=== PATIENT | female | born 1990 | race American Indian/Alaskan Native ===

== ENCOUNTER 2017-01-08 23:06 | Outpatient (CLI) | payer OTHER ==
[2017-01-08] MEDS ORDERED: LACTATED RINGERS 500 ML IV ONE (23:35)
[2017-01-08 23:49] VITALS: BP 113/76
[2017-01-08 23:58] LABS: Bacteria,Urine 1+ /HPF (Negative); Bilirubin,Urine NEG (Negative); Blood,Urine NEG (Negative); Ketones,Urine NEG (Negative); Leukocyte Esterase,Urine NEG (Negative); Mucus,Urine FEW /HPF; Nitrite,Urine NEG (Negative); Protein,Urine <15 mg/dL mg/dL (Negative); Urobilinogen,Urine < 2.0 mg/dL (<2.0)
--- NOTE | 2017-01-09 01:21 | Ultrasound Report ---
FINAL REPORT EXAM: US OB \T\gt; = 14 WEEKS FETUS HISTORY: Contractions, pressure, unable to find FHR. TECHNIQUE: Directed transabdominal ultrasound examination of the gravid pelvis was performed. No prior studies are available for comparison. FINDINGS: The patient is uncertain of last menstrual period. There is a single live intrauterine gestation, with cephalic presentation. The placenta is located posteriorly, and homogenous. The cervix measures 3.2 cm in length, within normal limits. The BPD measures 6.9 cm, corresponding to 27 weeks, 4 days. The HC measures 25.2 cm, corresponding to 27 weeks, 2 days. The AC measures 22.6 cm, corresponding to 27 weeks, 0 days. The femur length measures 5.1 cm, corresponding to 27 weeks, 2 days. There is an average ultrasound age of 27 weeks, 2 days. The anatomic survey is grossly unremarkable. cardiac activity is identified with a heart rate of 148 beats per minute. The RICK measures 9.4 cm, within normal limits. There is no significant pelvic free fluid. IMPRESSION: Single live intrauterine gestation with cephalic presentation, with average ultrasound age of 27 weeks, 2 days.
== END 2017-01-09 00:57 | disposition home or self-care (01) ==
LOC: TRG 23:06
PROVIDERS: ATTEND Obstetrics & Gynecology
DX: O47.02 False labor before 37 completed weeks of gestation, second trimester (principal); Z3A.27 27 weeks gestation of pregnancy
CPT/HCPCS: 76805; 81001; J7120

== ENCOUNTER 2017-02-19 06:49 | Outpatient (CLI) | payer OTHER ==
[2017-02-19 07:20] VITALS: BP 130/71
== END 2017-02-19 09:25 | disposition home or self-care (01) ==
LOC: TRG 06:49
PROVIDERS: ATTEND Obstetrics & Gynecology
DX: O47.03 False labor before 37 completed weeks of gestation, third trimester (principal); Z3A.32 32 weeks gestation of pregnancy
CPT/HCPCS: 59025

== ENCOUNTER 2017-02-19 09:30 | Emergency (ER) | payer OTHER ==
[2017-02-19 10:22] LABS: Basophils % (Auto) 0.3 % (0.0-1.8); Eosinophils % (Auto) 3.6 % (0.0-4.3); Hematocrit 31.7 % (30.3-42.9); Hemoglobin 10.6 gm/dl (10.1-14.3); Mean Corpuscular HGB Conc 34 % (30-34); Mean Corpuscular Hemoglobin 28 pg (28-32); Mean Corpuscular Volume 84 fl (79-97); Platelet Count 221 K/mm3 (140-440); Red Cell Distribution Width 14.1 % (13.2-15.2)
[2017-02-19 10:23] LABS: Anion Gap 17 mmol/L; Blood Urea Nitrogen 5 mg/dL (7-17); Calcium 8.1 mg/dL (8.4-10.2); Carbon Dioxide 21 mmol/L (22-30); Chloride 102.5 mmol/L (98-107); Glucose 80 mg/dL (65-100); Potassium 4.1 mmol/L (3.6-5.0); Sodium 136 mmol/L (137-145)
--- NOTE | 2017-02-19 12:43 | Emergency Department Report ---
HPI - General Chief Complaint: Dyspnea/Respdistress Time Seen by Provider: 02/19/17 12:13 - HPI HPI: This is a 26 year-old female, who is 32 weeks , who presents to the emergency department complaint of a sudden onset of shortness of breath that began about 5 AM on the patient was working. She came to labor and delivery and had the baby evaluated and was told that the fetus appears normal but that she come to the emergency department for evaluation of a blood clot. She denies any swelling in legs, chest pain, fever, nausea, vomiting, cough, wheezing or diaphoresis. There is a family history of blood clots occurring during . Patient is with 3 live children including a set of twins. Her REHABILITATION WORKER is Dr. Kiran and/or Dr. Soria. She did not take anything for her symptoms prior to presentation. ED Past Medical Hx - Past Medical History Previous Medical History?: Yes Hx Hypertension: No Hx Diabetes: No Hx Deep Vein Thrombosis: No Hx Renal Disease: No Hx Sickle Cell Disease: No Hx Seizures: No Hx Asthma: No Hx HIV: No Additional medical history: family history of blood clots during - Surgical History Past Surgical History?: Yes Hx Breast Surgery: Yes Additional Surgical History: breast reduction, - Social History Smoking Status: Never Smoker ED Review of Systems ROS: Stated complaint: SOB 32 WEEKS PREG Other details as noted in HPI Comment: All other systems reviewed and negative Constitutional: denies: chills, fever Eyes: denies: eye pain, eye discharge, vision change ENT: denies: ear pain, throat pain Respiratory: shortness of breath. denies: cough Cardiovascular: denies: chest pain, palpitations, edema Gastrointestinal: denies: abdominal pain, nausea, diarrhea Genitourinary: denies: urgency, dysuria, discharge Musculoskeletal: denies: back pain, joint swelling, arthralgia Skin: denies: rash, lesions Neurological: denies: headache, weakness, paresthesias Physical Exam - Physical Exam Vital Signs: Vital Signs 02/19/17 09:34 Temperature 98.4 F Pulse Rate 86 Respiratory 18 Rate Blood Pressure 124/85 O2 Sat by Pulse 100 Oximetry Physical Exam: GENERAL: The patient is well-developed well-nourished. HENT: Normocephalic. Atraumatic. Patient has moist mucous membranes. EYES: Extraocular motions are intact. Pupils equal reactive to light bilaterally. NECK: Supple. Trachea is midline. CHEST/LUNGS: Clear to auscultation. There is no respiratory distress noted. No tachypnea or accessory muscle use. HEART/CARDIOVASCULAR: Regular. There is no tachycardia. There is no gallop rub or murmur. ABDOMEN: Abdomen is soft, nontender. Patient has normal bowel sounds. SKIN: There is no rash. There is no edema. There is no diaphoresis. NEURO: The patient is awake, alert, and oriented. The patient is cooperative. The patient has no focal neurologic deficits. The patient has normal speech and gait. MUSCULOSKELETAL: There is no tenderness or deformity. There is no limitation range of motion. There is no evidence of acute injury. ED Course Vital Signs 02/19/17 09:34 Temperature 98.4 F Pulse Rate 86 Respiratory 18 Rate Blood Pressure 124/85 O2 Sat by Pulse 100 Oximetry - Consultations Consultation #1: I spoke to the deckhand sponge boat of Dr. Kiran and they're aware of the patient's presentation to the ER from labor and delivery for rule out PE and do not have any preference as to which imaging modality to do but do want the pulmonary embolus ruled out. 02/19/17 20:06 ED Medical Decision Making - Lab Data Result diagrams: 02/19/17 09:54 02/19/17 09:54 - EKG Data -: EKG Interpreted by Me EKG shows normal: sinus rhythm, axis, intervals, QRS complexes (Q waves to the septal leads), ST-T waves Rate: normal - EKG Data When compared to previous EKG there are: previous EKG unavailable Interpretation: other (Q waves to the septal leads) 02/19/17 13:28 Repeat EKG shows normal sinus rhythm, normal axis, normal intervals, normal EKG. - Radiology Data Radiology results: report reviewed, image reviewed interpreted by me: Chest x-ray does not show any acute process. There are no pleural effusions, obvious pneumonia and there is no pneumothorax. Right lower extremity venous Doppler negative for DVT. Ventilation perfusion scan negative for pulmonary embolus. - Medical Decision Making 26-year-old female who is 32 weeks presents from labor and delivery with some acute shortness of breath from this morning and the need to rule out a pulmonary embolism. She does not appear in any acute distress and her lung examination as well as the rest of her examination is normal. A d-dimer was ordered and the hopes that it would come back negative but as often is the case in females came back elevated and equivocal. The radiologist, Dr. Kang, recommended VQ scan over CT angiography as the nuclear medicine study is less harmful to the fetus then the contrast going to the placenta. For this reason a chest x-ray was done first and then a VQ scan followed and they both resulted as negative examinations. Patient will follow up with her primary care physician and REHABILITATION WORKER. Vital signs stable throughout her ED course. - Differential Diagnosis pneumonia, URI, PE Critical Care Time: No Critical care attestation.: If time is entered above; I have spent that time in minutes in the direct care of this critically ill patient, excluding procedure time. ED Disposition Clinical Impression: Shortness of breath Qualifiers: Weeks of gestation: 32 weeks Qualified Code(s): Z3A.32 - 32 weeks gestation of Disposition: DC-01 TO HOME OR SELFCARE Is pt being admited?: No Condition: Stable Instructions: (ED), Dyspnea (ED) Additional Instructions: Please follow-up with your primary care doctor and REHABILITATION WORKER. Return to the emergency Department with any worsening of her symptoms or any acute distress. Referrals: PRIMARY CARE, [Primary Care Provider] - 3-5 Days Time of Disposition: 16:53
--- NOTE | 2017-02-19 15:14 | Vascular Lab Report ---
Right Lower Extremity Venous Duplex Study: Reason for Exam: Pain of the right lower extremity. Comments on the Right: All veins visualized are freely compressible without evidence of internal echogenicity. Flow is spontaneous and phasic throughout. No evidence of acute or chronic thrombus is seen in any of the vessels visualized. Comments on the Left: A limited duplex study was done of the proximal veins of the left lower extremity. All veins visualized are freely compressible without evidence of internal echogenicity. Flow is spontaneous and phasic throughout. No evidence of acute or chronic thrombus is seen in any of the vessels visualized. Impression: No evidence of acute or chronic deep venous thrombosis in the right lower extremity.
--- NOTE | 2017-02-19 15:46 | Nuclear Medicine Report ---
PERFUSION LUNG SCAN: SOB, elevated d-dimer. After injection of Technetium 99m macroaggregated albumin gamma camera imaging of the lungs in multiple projections demonstrates normal pulmonary contours with a homogeneous distribution of activity. No focal areas of perfusion deficiency are identified. IMPRESSION: Normal study.
--- NOTE | 2017-02-19 16:45 | XRay Report ---
PORTABLE CHEST: SOB. An AP portable view of the chest demonstrates a normal cardiac contour considering the limits of this technique. The lungs are clear with no evidence of infiltrate, fluid or failure. IMPRESSION: Normal portable chest.
[2017-02-19 17:09] VITALS: BP 118/70
== END 2017-02-19 17:10 | disposition home or self-care (01) ==
LOC: ED 09:30
DX: O26.893 Other specified pregnancy related conditions, third trimester (principal); Z3A.32 32 weeks gestation of pregnancy
CPT/HCPCS: 36415; 71010; 78580; 80048; 84484; 85025; 85379; 93005; 93010; 93971; 99284; A9540

== ENCOUNTER 2017-03-14 07:31 | Outpatient (CLI) | payer OTHER ==
[2017-03-14] MEDS ORDERED: ZOFRAN IV PRN (08:31)
[2017-03-14] MEDS ORDERED: LACTATED RINGERS 1,000 ML IV ONE (09:01)
[2017-03-14 09:23] LABS: Hematocrit 29.2 % (30.3-42.9); Hemoglobin 10.1 gm/dl (10.1-14.3); Mean Corpuscular HGB Conc 35 % (30-34); Mean Corpuscular Hemoglobin 28 pg (28-32); Mean Corpuscular Volume 79 fl (79-97); Platelet Count 230 K/mm3 (140-440); Red Blood Count 3.68 M/mm3 (3.65-5.03); Red Cell Distribution Width 14.8 % (13.2-15.2); White Blood Count 5.2 K/mm3 (4.5-11.0)
[2017-03-14 09:38] LABS: Alanine Aminotransferase 12 units/L (7-56); Albumin 3.1 g/dL (3.9-5); Albumin/Globulin Ratio 0.8 %; Alkaline Phosphatase 110 units/L (35-129); Amylase 50 units/L (27-131); Anion Gap 17 mmol/L; Blood Urea Nitrogen 4 mg/dL (7-17); Calcium 8.2 mg/dL (8.4-10.2); Carbon Dioxide 21 mmol/L (22-30); Chloride 105.5 mmol/L (98-107); Glucose 108 mg/dL (65-100); Lipase 24 units/L (13-60); Potassium 3.6 mmol/L (3.6-5.0); Sodium 140 mmol/L (137-145); Total Protein 6.8 g/dL (6.3-8.2)
[2017-03-14 09:55] LABS: Bacteria,Urine 1+ /HPF (Negative); Bilirubin,Urine NEG (Negative); Blood,Urine NEG (Negative); Ketones,Urine NEG (Negative); Leukocyte Esterase,Urine SM (Negative); Mucus,Urine FEW /HPF; Nitrite,Urine NEG (Negative); Protein,Urine <15 mg/dL mg/dL (Negative)
[2017-03-14] MEDS ORDERED: PEPCID IV ONE (10:00)
--- NOTE | 2017-03-14 10:30 | Ultrasound Report ---
RIGHT UPPER QUADRANT ULTRASOUND: HISTORY: Right upper quadrant pain. Technique: Transabdominal ultrasound imaging with Doppler interrogation. FINDINGS: There is a least one large gallstone measuring up to 1.4 cm near the gallbladder neck. No evidence for abnormal gallbladder distention, wall thickening or surrounding fluid. The CBD measures 3.3 mm. Images of the liver parenchyma, pancreas, right kidney and aorta are within normal limits. No perihepatic ascites. IMPRESSION: Large gallstone. No secondary findings of acute cholecystitis.
[2017-03-14 11:03] VITALS: BP 117/79
--- NOTE | 2017-03-14 11:20 | Discharge Summary ---
Providers - Providers Date of discharge: 03/14/17 Attending physician: CUCO WELLS Primary care physician: CUCO WELLS Hospitalization Reason for admission: observation, other (cholelithiasis) Procedure: other (IVF hydration, GB US) Discharge diagnosis: other (IUP@ 35weeks, cholelithiasis) Condition at discharge: Good Disposition: DC-01 TO HOME OR SELFCARE - Discharge Diagnoses (1) 35 weeks gestation of Status: Acute (2) Cholelithiasis affecting in third trimester, antepartum Status: Acute (3) Maternal care for scar from previous delivery Status: Chronic Qualifiers: Previous delivery type: unspecified Qualified Code(s): O34.219 - Maternal care for unspecified type scar from previous delivery Plan - Provider Discharge Summary Activity: no heavy lifting 4 weeks, no strenuous exercise Diet: other (Avoid fatty, spicy foods, drink 100oz water a day) Instructions: other (Do not return to work until after your appointment with your Principal Systems Architect) Additional instructions: [] Smoking cessation referral if applicable(refer to patient education folder for contact #) [] Refer to [facility] Booklet Call your doctor immediately for: * Fever > 100.5 * Heavy vaginal bleeding ( >1 pad per hour) * Severe persistent headache * Shortness of breath * Reddened, hot, painful area to leg or breast * Drainage or odor from incision. * Keep incision clean and dry at all times and follow doctor's instructions regarding bathing/showering Prescriptions fpr Zofran and Pepcid have been electronically transmitted to the following pharmacy thru the office EMR: [facility]/pharmacy #[id number]* (retail) [id number] [place] [place] - Follow up plan Follow up: CUCO WELLS MD [Primary Care Provider] - 03/17/17 2:15 pm KEN PAYNE DO [Staff Physician] - 7 Days
== END 2017-03-14 11:56 | disposition home or self-care (01) ==
LOC: TRG 07:31
PROVIDERS: ATTEND Obstetrics & Gynecology
DX: O99.613 Diseases of the digestive system complicating pregnancy, third trimester (principal); K80.20 Calculus of gallbladder without cholecystitis without obstruction; O47.03 False labor before 37 completed weeks of gestation, third trimester; Z3A.35 35 weeks gestation of pregnancy
CPT/HCPCS: 36415; 59025; 76705; 80053; 81001; 82150; 83690; 85027; 96360; 96374; J2405; J7120

== ENCOUNTER 2017-03-21 03:36 | Inpatient (IN) | payer OTHER ==
[2017-03-21] MEDS ORDERED: BICITRA PO ONE (05:15)
[2017-03-21] MEDS ORDERED: PEPCID IV ONE (05:15)
[2017-03-21] MEDS ORDERED: REGLAN IV ONE (05:15)
--- NOTE | 2017-03-21 05:42 | History and Physical Report ---
History of Present Illness Date of examination: 03/21/17 Date of admission: 03/21/2017 Chief complaint: 27 yo previous c/s for twins (unknown incision) in labor now 4-5 cm. She is 36 wk + 6 d now by early care begining at 17 wk. Recently dx with cholelithiasis (large stone 1.4 cm) without obstruction, not symptomatic at present. Hx breast reduction. No other new problems. MBT AB pos, Rub Im, GBS pos. History of present illness: Remainder of H&P from [facility] and confirmed today OB Intake Ethnicity: Policy Adviser: undecided Father of baby: declined Notes: fraternal twins 04/13/2016 Vital Signs Height: 64 in. Weight (lb): 176 BMI: 30.3 Pre- Weight: 214 BP: 98/ 64 mm Hg Chief Complaint/Current Status: Patient presents for missed period, she complains of NVP, breast tendersness...Lise Parsons Menstrual History Regularity: irregular LMP: 07/06/2016 LMP reliability: unknown test type: urine test Date: 10/30/2016 BC at conception: none Planned ? no EDC Calculations LMP: 04/12/2017 EDC Confirmation: 04/12/2017 Gestational Age: 16 4/7 weeks Past History : 2 # 1 Delivery date: 04/13/2016 Weeks Gestation: 26 labor: yes Delivery type: Anesthesia type: general Delivery location: [place] Infant Sex: boy/girl Name: Ave/etienne Comments: 2lbs 2oz completely dilated 2lbs Past Medical History: PCOS Past Surgical History: Breast Reduction: 2007 staph infection due to dog bite 2011 (04/13/2016) Family History Summary: Other family member - Has No Family History of Ovarvian Cancer - Entered On: Other family member - Has No Family History of Colon Cancer - Entered On: 2016 Other family member - Has No Family History of Breast Cancer - Entered On: 2016 Other family member - Has Family History of Diabetes - Entered On: 10/30/2016 Other family member - Has Family History of CVA or Stroke - Entered On: 2016 Other family member - Has Family History of Coronary Heart Disease - Entered On : 10/30/2016 General Comments - FH: Family History of Hypertension mother Social History: Vanessa jose [facility] Patient is Risk Factors: Smoked Tobacco Use: Never smoker Drug use: no HIV high-risk behavior: low risk Alcohol use: no Dietary Counseling: pn yes Past Medical History Surgery (Non-roving changer): Breast Reduction: 2007 staph infection due to dog bite 2011 (04/13/2016) Abnormal PAP: positive Uterine Anomaly: negative 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 [facility] Patient is Infection History Hx of STD: chlamydia HIV Risk Eval: low risk Hepatitis B Risk Eval: low risk Genetic History Congenital Heart Defect: Mom: no Dad: no Tamiac Disease: Mom: no Dad: no Thalassemia Mom: no Dad: no Neural Tube Defect Mom: no Dad: no Down's Syndrome Mom: yes Dad: no Comments: 2nd cousin Wilson-Sachs Mom: no Dad: no Sickle Cell Disease/Trait Mom: no Dad: no Hemophilia Mom: no Dad: no Muscular Dystrophy Mom: no Dad: no Cystic Fibrosis Mom: no Dad: no [place] Chorea Mom: no Dad: no Mental Retardation Mom: no Dad: no Fragile X Mom: no Dad: no Other Genetic/Chromosomal Disorder Mom: no Dad: no Child w/other defect Mom: no Dad: no Active Medications (reviewed today): FORMULA 27-1 MG ORAL TABS ( VIT-FE FUMARATE-FA) 1 po q day as directed Current Allergies (reviewed today): No known allergies Laboratory Results Date/Time Collected: 10/30/16 Urine HCG: positive Review of Systems General Complains of fatigue. Denies fever, chills, sweats, anorexia, weakness, malaise, weight loss and sleep disorder. Complains of pelvic pain. Denies vaginal discharge, incontinence, dysuria, hematuria, urinary frequency, amenorrhea, menorrhagia, abnormal vaginal bleeding, genital sores, decreased libido, painful periods, painful sex, urinary urgency, hot flashes, vaginal dryness, vaginal itching and vaginal odor. CV Denies chest pains, palpitations, syncope, dyspnea on exertion, orthopnea, PND and peripheral edema. Resp Denies cough, dyspnea at rest, excessive sputum, hemoptysis, wheezing and pleurisy. GI Denies nausea, vomiting, diarrhea, constipation, change in bowel habits, abdominal pain, melena, hematochezia, jaundice, gas/bloating, indigestion/ heartburn, dysphagia and odynophagia. Breast Complains of breast pain. Denies left breast lump, right breast lump, nipple discharge, bloody discharge from nipple, abnormal mammogram and breast enlargement. Psych Denies depression, anxiety, irritability and mood swings. PHYSICAL EXAM HEENT: normocephalic, no lesions or deformities Neck/Thyroid: supple, thyroid normal Skin no significant abnormal lesions or rashes Chest: respiratory effort normal, clear to auscultation Breasts: skin/areolae normal, no masses, no nipple discharge, no erythema/warmth /tenderness, and axillae normal. Breast reduction surgical scars CV: regular, normal S1-S2, no murmur, no rub, no gallop Abdomen: obese normal bowel sounds, soft, nontender, no HSM Well healed pfannenstiel scar Musculoskeletal: grossly normal ROM in joints, no joint tenderness or muscle weakness Neuro: no gross anomalities Extremities: no clubbing, cyanosis, or edema ASSOCIATE Exams Vulva/Vagina: No lesions, normal BUS, normal rugae Cervix: No lesions; no cervical motion tenderness Uterus: Enlarged 16- 18 week size Adnexae: Unable to palpate due to uterine size Rectovaginal: exam defered Flowsheet View for Follow-up Visit Estimated weeks of gestation: 16 4/7 Weight: 176 Blood pressure: 98 / 64 Infant's Physician: undecided Education Provided: 1) Education provided today and information packet given. 2) Review normal weight gain and proper nutrition during . 3) Elevate head of bed at least 6 inches (raise bed posts not just with pillows ); small frequent meals and take TUMS as needed. 4) Advice on healthy diet for reviewed and information provided. 5) Stressed importance of taking folic acid and vitamins. 6) Hazards of smoking and reviewed; smoking cessation strongly encouraged and smoking cessation techniques reviewed. 7) Stressed the risks of alcohol and drug use in including risk of premature delivery, small baby (SGA), abruption, and . 8) Counseled on HIV testing. 9) No work restrictions at this time. 10) Patient informed Vaginal after C/S are not performed. 11) Patient agrees that all care provided and delivery performed only at [facility]. 12) Patient recieved guide book and encouraged to read. 13) Patient understands she will be delivered by the MD/MYAH military personnel specialist for the practice. Past History - Obstetrical History : 2 Medications and Allergies Allergies Allergy/AdvReac Type Severity Reaction Status Date / Time No Known Allergies Allergy Verified 03/21/17 05:24 Home Medications Medication Instructions Recorded Confirmed Last Taken Type Vit-Fe Fumar-FA [ 1 tab PO QDAY 03/14/17 03/14/17 03/08/17 09: 00 History Vitamin] 1 Active Meds: Active Medications Cefazolin Sodium (Ancef/Sterile Water 2 Gm/20 Ml) 2 gm in 20 mls @ 80 mls/hr IV PREOP NR PRN Reason: Protocol Stop: 03/21/17 23:45 Lactated Ringer's (Lactated Ringers) 1,000 mls @ 2,250 mls/hr IV PREOP MEETA Stop: 03/22/17 06:27 Oxytocin/Sodium Chloride (Pitocin/Ns 20 Unit/1000ml Drip) 20 units in 1,000 mls @ 0 mls/hr IV TITR MEETA PRN Reason: As Directed - Vital Signs Vital signs: Vital Signs Pulse Pulse Ox 101 H 98 03/21/17 04:01 03/21/17 04:01 Temp Pulse Resp BP Pulse Ox 121 H 98 03/21/17 05:36 03/21/17 05:36 Results Result Diagrams: 03/21/17 06:00 All other labs normal. Assessment and Plan - Patient Problems (1) Maternal care for scar from previous delivery Current Visit: Yes Status: Chronic Qualifiers: Previous delivery type: unspecified Qualified Code(s): O34.219 - Maternal care for unspecified type scar from previous delivery Plan to address problem: repeat c/s (2) labor in third trimester Current Visit: Yes Status: Acute Qualifiers: labor delivery status: with delivery in third trimester Fetus number: single or unspecified fetus Qualified Code(s): O60.14X0 - labor third trimester with delivery third trimester, not applicable or unspecified (3) Positive GBS test Current Visit: Yes Status: Acute (4) 36 to 37 weeks gestation of Current Visit: Yes Status: Acute (5) Cholelithiasis affecting in third trimester, antepartum Current Visit: Yes Status: Chronic
[2017-03-21] MEDS ORDERED: ANCEF/STERILE WATER 2 GM/20 ML 2 GM/20 ML SYRINGE IV NR (06:00)
[2017-03-21] MEDS ORDERED: PITOCin/NS 20 UNIT/1000ML DRIP IV ONE (06:00)
[2017-03-21] MEDS ORDERED: PITOCin/NS 20 UNIT/1000ML DRIP 20 UNITS/1,000 ML BAG IV SCH ×2 (06:00→09:00)
[2017-03-21] MEDS ORDERED: LACTATED RINGERS 1,000 ML IV SCH ×2 (06:00→15:00)
[2017-03-21 06:15] LABS: Basophils % (Auto) 0.4 % (0.0-1.8); Eosinophils % (Auto) 2.2 % (0.0-4.3); Hematocrit 29.9 % (30.3-42.9); Mean Corpuscular HGB Conc 34 % (30-34); Mean Corpuscular Hemoglobin 27 pg (28-32); Mean Corpuscular Volume 80 fl (79-97); Platelet Count 232 K/mm3 (140-440); Red Blood Count 3.75 M/mm3 (3.65-5.03); Red Cell Distribution Width 14.4 % (13.2-15.2)
--- NOTE | 2017-03-21 06:25 | Anesthesia Consultation ---
Anesthesia Consult and Med Hx Date of service: 03/21/17 - Airway Anesthetic Teeth Evaluation: Good ROM Head & Neck: Adequate Mental/Hyoid Distance: Adequate Mallampati Class: Class II Intubation Access Assessment: Probably Good - Pulmonary Exam CTA: Yes - Cardiac Exam Cardiac Exam: RRR - Pre-Operative Health Status ASA Pre-Surgery Classification: ASA2, Emergency Proposed Anesthetic Plan: Epidural, Spinal - Pulmonary Hx Asthma: No - Cardiovascular System Hx Hypertension: No - Central Nervous System Hx Seizures: No Hx Psychiatric Problems: No - Endocrine Hx Renal Disease: No Hx Hypothyroidism: No Hx Hyperthyroidism: No - Hematic Hx Anemia: No Hx Sickle Cell Disease: No - Other Systems Hx Alcohol Use: No
--- NOTE | 2017-03-21 06:25 | Anesthesia Day of Surgery ---
Anesthesia Day of Surgery - Day of Surgery Patient Examined: Yes Patient H&P Reviewed: Yes Patient is NPO: No
[2017-03-21] MEDS ORDERED: DILAUDID IV PRN ×2 (06:26)
[2017-03-21] MEDS ORDERED: PHENERGAN PR PRN ×2 (06:26→08:02)
[2017-03-21] MEDS ORDERED: NARCAN 0.4 MG/1 ML IV PRN ×2 (06:26→08:02)
[2017-03-21] MEDS ORDERED: ZOFRAN IV PRN ×2 (06:26→08:02)
[2017-03-21] MEDS ORDERED: PHENERGAN PO PRN (06:26)
[2017-03-21] MEDS ORDERED: NACL 0.9% IR ONE (07:04)
[2017-03-21] MEDS ORDERED: WATER FOR IRRIG STERILE IR ONE (07:04)
[2017-03-21] MEDS ORDERED: NEO SYNEPHRINE/NS Syringe(OR USE) IV ONE (07:30)
[2017-03-21] MEDS ORDERED: DEMEROL IV PRN (07:44)
--- NOTE | 2017-03-21 08:01 | Operative Report ---
Operative Report Operative Report: Date of Procedure: 03/21/2017 Procedure name(s): Repeat transverse low segment section Pre-operative diagnosis: Previous section with unknown incision in labor at 36 weeks and 6 days, keloid in previous incision Post-operative diagnosis: Same plus previous incision was a low segment transverse uterine incision, which had a very thin window at this operation Surgeon: Marya Kinsey M.D. Drum Sander: Shana Salinas CNM Anesthesia: Spinal EBL: 100 mL Infant: 6 lbs. 1 oz. female with Apgars of 8 and 9 Time of : 0714 Findings Normal tubes, uterus and ovaries with a very thin lower uterine segment window Procedure The patient was taken to the operating room and after adequate anesthesia was obtained she was placed in the supine position in left lateral tilt. Sequential compression devices were in place on both lower extremities and a Desai catheter was placed in a sterile fashion. The abdomen was then prepped and draped in the usual fashion. Surgical time-out was done with the entire OR team attentive. A Pfannenstiel incision was made with a scalpel excising the keloid scar and sharp dissection was carried down through all layers of the abdomen in the usual fashion. The abdomen was entered bluntly and the lower uterine segment was identified. The presenting part was palpated and a bladder flap was created with the Metzenbaum scissors. The scalpel was used to incise the uterus in a transverse fashion with a very thin window and this incision was extended bluntly with finger traction and the membranes were ruptured. My hand was inserted into the uterus. The vertex was grasped, rotated to an OA presentation and delivered with a combination of traction and fundal pressure. The cord was clamped and cut and a viable infant was suctioned and handed off to the attending NICU staff and was a 6 lbs. 1 oz. female with Apgars of 8 and 9. The placenta was removed manually, the interior of the uterus was cleansed with moist lap packs and the uterus was exteriorized. The uterine incision was closed with a double imbricating layer of 0 Vicryl suture in a running fashion. Hemostasis was adequate and the uterus was returned to the abdomen. Uterus was well contracted. The abdomen was then closed in layers: the rectus muscles were closed with several [id number] sutures of 0 Vicryl, the fascia was closed with running sutures of 0 Vicryl starting at both side corners in turn and tied together in the midline. The subcutaneous tissue was irrigated and then closed with several interrupted sutures of 2-0 plain and the skin was closed with a running subcuticular suture of 4-0 Vicryl. Sponge and Lap count correct X 3, estimated blood loss was 700 mL and the Desai was draining clear urine. The patient tolerated the procedure well and was discharged to PACU in good condition.
[2017-03-21] MEDS ORDERED: TUCKS PAD TP PRN (08:02)
[2017-03-21] MEDS ORDERED: TYLENOL PO PRN (08:02)
[2017-03-21] MEDS ORDERED: LANSINOH TP PRN (08:02)
[2017-03-21] MEDS ORDERED: MORPHINE IV PRN (08:02)
[2017-03-21] MEDS ORDERED: PERCOCET 5/325 PO PRN (08:02)
[2017-03-21] MEDS: TORADOL IV PRN ×3 (08:48→21:59)
[2017-03-21] MEDS ORDERED: SODIUM CHLORIDE FLUSH SYRINGE 10 ML IV NR (09:00)
--- NOTE | 2017-03-21 10:27 | Post Anesthesia Evaluation ---
- Post Anesthesia Evaluation Patient Participated: Yes Airway Patent: Yes Stable Respiratory Function: Yes Nausea/Vomiting: No Temp > 96.8F: Yes Pain Manageable: Yes Adequeate Hydration: Yes Anesthesia Complications: No Block Receding Appropriately: Not Applicable Patient on Ventilator: No
[2017-03-21] MEDS ORDERED: Fluarix Quad 2017-2018(36 MOS+) IM ONE (12:00)
[2017-03-21] MEDS ORDERED: MORPHINE IV ONE (12:44)
[2017-03-21] MEDS: ANCEF/NS 1 GM/50 ML 1 GM/50 ML BAG IV SCH ×2 (16:17→23:43)
[2017-03-21] MEDS: NORCO 5/325 PO PRN (20:14)
[2017-03-21 23:06] LABS: Hematocrit 30.3 % (30.3-42.9); Hemoglobin 10.1 gm/dl (10.1-14.3)
[2017-03-22] MEDS: NORCO 5/325 PO PRN ×4 (01:31→23:31)
[2017-03-22] MEDS: TORADOL IV PRN (04:02)
[2017-03-22] MEDS ORDERED: BOOSTRIX IM ONE ×2 (06:00→08:04)
--- NOTE | 2017-03-22 06:56 | Progress Note ---
Assessment and Plan - Patient Problems (1) delivery delivered Onset Date: ~03/21/17 Current Visit: Yes Status: Acute Plan to address problem: pt w/o complaint VSS FF below umb Lochia small Dressing D&I H&H 04/12 stable No s/sx of anemia Doing well s/p section P: continue pathway Advance diet and activity as tolerated. Subjective - Subjective Date of service: 03/22/17 (pt resting w/o complaint) Patient reports: appetite normal, voiding normally, pain well controlled, ambulating normally : doing well Objective - Vital Signs Latest vital signs: Vital Signs Temp Pulse Resp BP BP Pulse Ox 03/22/17 00:20 98.6 F 81 16 102/76 03/21/17 19:45 98.6 F 69 16 121/76 03/21/17 16:25 98.6 F 84 20 122/82 03/21/17 12:04 98.6 F 76 20 150/86 03/21/17 09:40 98.1 F 74 20 149/96 03/21/17 09:16 75 12 136/84 97 03/21/17 09:01 75 15 133/84 96 03/21/17 08:48 12 03/21/17 08:46 75 12 134/82 100 03/21/17 08:35 14 03/21/17 08:31 75 16 124/76 98 03/21/17 08:26 72 14 129/72 100 03/21/17 08:21 87 12 126/64 100 03/21/17 08:16 97.9 F 81 12 109/64 100 Intake and Output 03/21/17 03/21/17 03/22/17 14:59 22:59 06:59 Intake Total 300 650 Output Total 775 700 800 Balance -475 -50 -800 Intake: IV 300 50 ANCEF/NS 1 GM/50 ML 1 gm 50 In 50 ml @ 100 mls/hr IV Q8H [facility] Rx#:[id number] Oral 600 Output: Urine 775 700 800 Indwelling Catheter 500 Void 100 800 Other: Total, Output Amount 500 100 800 Voiding Method Indwelling Catheter # Voids Indwelling Catheter 500 Estimated Blood Loss 700 - Exam Breasts: Present: normal Cardiovascular: Present: Regular rate Lungs: Present: Clear to auscultation, Normal air movement Abdomen: Present: normal appearance, soft, normal bowel sounds Uterus: Present: normal, firm, fundal height below umbilicus Extremities: Present: normal Deep Tendon Reflex Grade: Normal +2 Incision: Present: normal, dry, intact, dressed (to be removed today)
[2017-03-22] MEDS ORDERED: MYLICON PO PRN (10:00)
[2017-03-22] MEDS: MOTRIN PO PRN ×2 (13:09→23:25)
--- NOTE | 2017-03-22 16:04 | Progress Note ---
Subjective Date of service: 03/22/17 Interval history: 1st POD after Patient is in the bed, comfortable. Pain is well controlled with pain meds. Ambulated well. No residual neurological deficit. No anesthesia complications Objective - Constitutional Vitals: Vital Signs - 12hr 03/22/17 08:32 Temperature 98.6 F Pulse Rate 77 Respiratory 18 Rate Blood Pressure 124/86 [Right] O2 Sat by Pulse 100 Oximetry - Labs CBC & Chem 7: 03/21/17 22:45
[2017-03-23] MEDS: MOTRIN PO PRN ×2 (05:08→15:32)
--- NOTE | 2017-03-23 07:25 | Progress Note ---
Assessment and Plan patient doing well w/o complaints. desires d/c home today. Lochia scant, VSSAF , incision dry and intact w/ steristrips. plan for d/c home and 1 week f/u in office for incision check. - Patient Problems (1) delivery delivered Onset Date: ~03/21/17 Current Visit: Yes Status: Acute Subjective - Subjective Date of service: 03/23/17 Principal diagnosis: postop day #2 s/p repeat c/s Patient reports: appetite normal, voiding normally, pain well controlled, flatus , ambulating normally, no dizzy ambulation, no nauseated : doing well, bottle feeding Objective - Vital Signs Latest vital signs: Vital Signs Temp Pulse Resp BP Pulse Ox 03/23/17 05:08 18 03/23/17 00:31 18 03/23/17 00:25 18 03/23/17 00:00 98.2 F 80 20 132/85 03/22/17 23:31 18 03/22/17 23:25 18 03/22/17 16:32 98.4 F 78 18 122/78 98 03/22/17 08:32 98.6 F 77 18 124/86 100 Intake and Output 03/22/17 03/22/17 03/23/17 15:59 23:59 07:59 Intake Total 480 480 Output Total 400 Balance 80 480 Intake: Oral 480 480 Output: Urine 400 Void 400 Other: Total, Intake Amount 120 240 Total, Output Amount 400 # Voids Void 1 1 # Bowel Movements 1 - Exam Breasts: Present: normal Cardiovascular: Present: Regular rate Lungs: Present: Clear to auscultation, Normal air movement Abdomen: Present: normal appearance, soft Vulva: both: normal Uterus: Present: normal, firm, fundal height at umbilicus Extremities: Present: normal Incision: Present: normal, dry, intact
--- NOTE | 2017-03-23 07:27 | Discharge Summary ---
Providers - Providers Date of Admission: 03/21/17 05:56 Date of discharge: 03/23/17 (desires d/c home) Attending physician: LUIS PRIETO Primary care physician: IVETTE PRIETO Hospitalization Reason for admission: labor Delivery: Procedure: repeat low transverse Episiotomy: none Laceration: none Incision: normal, dry, intact Other procedures: none complications: none Discharge diagnosis: delivery [place] baby: female Hospital course: uncomplicated c/s delivery Condition at discharge: Good Disposition: DC-01 TO HOME OR SELFCARE - Discharge Diagnoses (1) delivery delivered Status: Acute Plan - Discharge Medications Prescriptions: Ibuprofen [Motrin 800 MG tab] 800 mg PO Q8HR PRN #30 tablet PRN Reason: Pain oxyCODONE /ACETAMINOPHEN [Percocet 5/325 mg] 1 - 2 tab PO Q4HR PRN #30 tab PRN Reason: Pain - Provider Discharge Summary Activity: routine, no sex for 6 weeks, no heavy lifting 4 weeks, no strenuous exercise Diet: routine Instructions: routine Additional instructions: [] Smoking cessation referral if applicable(refer to patient education folder for contact #) [] Refer to [facility] Booklet Call your doctor immediately for: * Fever > 100.5 * Heavy vaginal bleeding ( >1 pad per hour) * Severe persistent headache * Shortness of breath * Reddened, hot, painful area to leg or breast * Drainage or odor from incision. * Keep incision clean and dry at all times and follow doctor's instructions regarding bathing/showering - Follow up plan Follow up: IVETTE PRIETO [Primary Care Provider] - 7 Days MARLO MONTEMAYOR CNM [Advanced Practice Nurse] - 7 Days (Congratulations!! Please call [phone] to schedule your incision check in 1 week. Call for any questions or concerns. )
[2017-03-23] MEDS: NORCO 5/325 PO PRN ×2 (08:16→15:31)
[2017-03-23 18:25] VITALS: BP 126/92
== END 2017-03-23 15:40 | disposition home or self-care (01) | DRG 765 ==
LOC: TRG 03:36 → APU 05:56 → OB 10:44
PROVIDERS: ADMIT Obstetrics & Gynecology; ATTEND Obstetrics & Gynecology
PROC: 10D00Z1 Extraction of Products of Conception, Low, Open Approach (ICD-10-PCS; principal; 2017-03-21)
PROC: 3E0234Z Introduction of Serum, Toxoid and Vaccine into Muscle, Percutaneous Approach (ICD-10-PCS; 2017-03-21)
DX: O34.211 Maternal care for low transverse scar from previous cesarean delivery (principal); O60.14X0 Preterm labor third trimester with preterm delivery third trimester, not applicable or unspecified; O98.52 Other viral diseases complicating childbirth; O99.824 Streptococcus B carrier state complicating childbirth; O99.613 Diseases of the digestive system complicating pregnancy, third trimester; K80.20 Calculus of gallbladder without cholecystitis without obstruction; Z83.3 Family history of diabetes mellitus; Z82.49 Family history of ischemic heart disease and other diseases of the circulatory system; Z3A.36 36 weeks gestation of pregnancy; Z37.0 Single live birth; Z82.3 Family history of stroke; Z23 Encounter for immunization
CPT/HCPCS: 36415; 85014; 85018; 85025; 86592; 86850; 86900; 86901; 90471; 90686; 90715; 99211; A6250; G0463; J0690; J1170; J1885; J2175; J2270; J2370; J2590; J2765; J7120

== ENCOUNTER 2018-12-14 06:53 | Emergency (ER) | payer OTHER ==
[2018-12-14 08:16] LABS: Bilirubin,Urine NEG (Negative); Blood,Urine NEG (Negative); Color,Urine Yellow (Yellow); Mucus,Urine FEW /HPF; Protein,Urine <15 mg/dL mg/dL (Negative); Urobilinogen,Urine < 2.0 mg/dL (<2.0)
[2018-12-14 08:26] LABS: Benzodiazepines Screen,Urine PRESUMPTIVE NEGATIVE; Cannabinoid Screen,Urine PRESUMPTIVE NEGATIVE; Cocaine Screen,Urine PRESUMPTIVE NEGATIVE; Methadone Screen,Urine PRESUMPTIVE NEGATIVE; Opiate Screen,Urine PRESUMPTIVE NEGATIVE
[2018-12-14 08:27] LABS: HCG Qualitative,Urine Negative (Negative)
--- NOTE | 2018-12-14 08:37 | Emergency Department Report ---
ED Palpitations HPI - General Chief Complaint: Arrhythmia/Palpitations Stated Complaint: RAPID HEARTRATE Time Seen by Provider: 12/14/18 07:31 Source: patient Mode of arrival: Ambulatory Limitations: No Limitations - History of Present Illness Initial Comments: Patient is a 28-year-old female who presents to emergency room with complaints of tachycardia that began a couple days ago. She states she has a [employer] ke which has been showing an elevated heart rate in the 120s. she states she is laying in bed when her heart rate is in the 120s. She states the only other time she had an elevated heart rate was when she was . She states she has occasional, mild shortness of breath. She denies any exertional shortness of breath, chest pain, pleuritic chest pain, nausea, vomiting, diarrhea, urinary symptoms, lower extremity edema. 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 She denies any family history of cardiac issues or DVT/PE. she is a nonsmoker, nondrinker, no drug use. She states she takes Adderall and last took it two days ago. She denies any allergies to medications. she does endorse frequent caffeine use. - Related Data Home Medications Medication Instructions Recorded Confirmed Last Taken Vit-Fe Fumar-FA [ 1 tab PO QDAY 03/14/17 03/21/17 03/08/17 09:00 Vitamin] 1 Previous Rx's Medication Instructions Recorded Last Taken Type Ibuprofen [Motrin 800 MG tab] 800 mg PO Q8HR PRN #30 tablet 03/21/17 Unknown Rx oxyCODONE /ACETAMINOPHEN [Percocet 1 - 2 tab PO Q4HR PRN #30 tab 03/21/17 Unknown Rx 5/325 mg] Allergies Allergy/AdvReac Type Severity Reaction Status Date / Time No Known Allergies Allergy Verified 03/21/17 05:24 ED Review of Systems ROS: Stated complaint: RAPID HEARTRATE Other details as noted in HPI Comment: All other systems reviewed and negative ED Past Medical Hx - Past Medical History Previous Medical History?: No Hx Hypertension: No Hx Congestive Heart Failure: No Hx Diabetes: No Hx Deep Vein Thrombosis: No Hx Renal Disease: No Hx Sickle Cell Disease: No Hx Seizures: No Hx Asthma: No Hx COPD: No Hx HIV: No Additional medical history: family history of blood clots during - Surgical History Past Surgical History?: Yes Hx Breast Surgery: Yes Additional Surgical History: breast reduction, - Social History Smoking Status: Never Smoker Substance Use Type: None - Medications Home Medications: Home Medications Medication Instructions Recorded Confirmed Last Taken Type Vit-Fe Fumar-FA [ 1 tab PO QDAY 03/14/17 03/21/17 03/08/17 09:00 History Vitamin] 1 Ibuprofen [Motrin 800 MG tab] 800 mg PO Q8HR PRN #30 tablet 03/21/17 Unknown Rx oxyCODONE /ACETAMINOPHEN [Percocet 1 - 2 tab PO Q4HR PRN #30 tab 03/21/17 Unknown Rx 5/325 mg] ED Physical Exam - General Limitations: No Limitations General appearance: alert, in no apparent distress - Head Head exam: Present: atraumatic, normocephalic - Eye Eye exam: Present: normal appearance, PERRL - ENT ENT exam: Present: mucous membranes moist - Respiratory Respiratory exam: Present: normal lung sounds bilaterally. Absent: respiratory distress, wheezes, rales, rhonchi, stridor, chest wall tenderness, accessory muscle use, decreased breath sounds, prolonged expiratory - Cardiovascular Cardiovascular Exam: Present: regular rate, normal rhythm, normal heart sounds. Absent: systolic murmur, diastolic murmur, rubs, gallop - Neurological Exam Neurological exam: Present: alert, oriented X3 - Psychiatric Psychiatric exam: Present: normal affect, normal mood - Skin Skin exam: Present: warm, dry, intact ED Course Vital Signs 12/14/18 12/14/18 12/14/18 06:56 07:47 09:45 Temperature 98.1 F 98.2 F Pulse Rate 73 62 Respiratory 14 Rate Blood Pressure 127/82 Blood Pressure 140/92 [Right] O2 Sat by Pulse 100 99 98 Oximetry ED Medical Decision Making - Lab Data Result diagrams: 12/14/18 08:12 12/14/18 08:12 Lab Results 12/14/18 12/14/18 12/14/18 Range/Units 07:44 07:44 08:12 WBC 3.3 L (4.5-11.0) K/mm3 RBC 3.85 (3.65-5.03) M/mm3 Hgb 12.7 (10.1-14.3) gm/dl Hct 36.1 (30.3-42.9) % MCV 94 (79-97) fl MCH 33 H (28-32) pg MCHC 35 H (30-34) % RDW 13.3 (13.2-15.2) % Plt Count 212 (140-440) K/mm3 Lymph % (Auto) 46.9 H (13.4-35.0) % [place] % (Auto) 10.0 H (0.0-7.3) % Eos % (Auto) 3.6 (0.0-4.3) % Baso % (Auto) 0.5 (0.0-1.8) % Lymph # 1.5 (1.2-5.4) K/mm3 [place] # 0.3 (0.0-0.8) K/mm3 Eos # 0.1 (0.0-0.4) K/mm3 Baso # 0.0 (0.0-0.1) K/mm3 Seg Neutrophils % 39.0 L (40.0-70.0) % Seg Neutrophils # 1.3 L (1.8-7.7) K/mm3 D-Dimer (0-234) ng/mlDDU Sodium (137-145) mmol/L Potassium (3.6-5.0) mmol/L Chloride (98-107) mmol/L Carbon Dioxide (22-30) mmol/L Anion Gap mmol/L BUN (7-17) mg/dL Creatinine (0.7-1.2) mg/dL Estimated GFR ml/min BUN/Creatinine Ratio % Glucose (65-100) mg/dL Calcium (8.4-10.2) mg/dL Phosphorus (2.5-4.5) mg/dL Magnesium (1.7-2.3) mg/dL TSH (0.270-4.200) mlU/mL HCG, Qual (Negative) Urine Color Yellow (Yellow) Urine Turbidity Slightly-cloudy (Clear) Urine pH 5.0 (5.0-7.0) Ur Specific [place] 1.024 (1.003-1.030) Urine Protein <15 mg/dl (Negative) mg/dL Urine Glucose (UA) Neg (Negative) mg/dL Urine Ketones Neg (Negative) mg/dL Urine Blood Neg (Negative) Urine Nitrite Neg (Negative) Urine Bilirubin Neg (Negative) Urine Urobilinogen < 2.0 (<2.0) mg/dL Ur Leukocyte Esterase Neg (Negative) Urine WBC (Auto) 2.0 (0.0-6.0) /HPF Urine RBC (Auto) 6.0 (0.0-6.0) /HPF U Epithel Cells (Auto) 11.0 (0-13.0) /HPF Urine Mucus Few /HPF Urine HCG, Qual Negative (Negative) Urine Opiates Screen Presumptive negative Urine Methadone Screen Presumptive negative Ur Barbiturates Screen Presumptive negative Ur Phencyclidine Scrn Presumptive negative Ur Amphetamines Screen Presumptive positive U Benzodiazepines Scrn Presumptive negative Urine Cocaine Screen Presumptive negative U Marijuana (THC) Screen Presumptive negative Drugs of Abuse Note Disclamer 12/14/18 12/14/18 12/14/18 Range/Units 08:12 08:12 08:12 WBC (4.5-11.0) K/mm3 RBC (3.65-5.03) M/mm3 Hgb (10.1-14.3) gm/dl Hct (30.3-42.9) % MCV (79-97) fl MCH (28-32) pg MCHC (30-34) % RDW (13.2-15.2) % Plt Count (140-440) K/mm3 Lymph % (Auto) (13.4-35.0) % [place] % (Auto) (0.0-7.3) % Eos % (Auto) (0.0-4.3) % Baso % (Auto) (0.0-1.8) % Lymph # (1.2-5.4) K/mm3 [place] # (0.0-0.8) K/mm3 Eos # (0.0-0.4) K/mm3 Baso # (0.0-0.1) K/mm3 Seg Neutrophils % (40.0-70.0) % Seg Neutrophils # (1.8-7.7) K/mm3 D-Dimer 171.42 (0-234) ng/mlDDU Sodium 140 (137-145) mmol/L Potassium 4.1 (3.6-5.0) mmol/L Chloride 106.7 (98-107) mmol/L Carbon Dioxide 24 (22-30) mmol/L Anion Gap 13 mmol/L BUN 7 (7-17) mg/dL Creatinine 0.8 (0.7-1.2) mg/dL Estimated GFR > 60 ml/min BUN/Creatinine Ratio 9 % Glucose 96 (65-100) mg/dL Calcium 8.5 (8.4-10.2) mg/dL Phosphorus 4.10 (2.5-4.5) mg/dL Magnesium 1.80 (1.7-2.3) mg/dL TSH 2.130 (0.270-4.200) mlU/mL HCG, Qual (Negative) Urine Color (Yellow) Urine Turbidity (Clear) Urine pH (5.0-7.0) Ur Specific [place] (1.003-1.030) Urine Protein (Negative) mg/dL Urine Glucose (UA) (Negative) mg/dL Urine Ketones (Negative) mg/dL Urine Blood (Negative) Urine Nitrite (Negative) Urine Bilirubin (Negative) Urine Urobilinogen (<2.0) mg/dL Ur Leukocyte Esterase (Negative) Urine WBC (Auto) (0.0-6.0) /HPF Urine RBC (Auto) (0.0-6.0) /HPF U Epithel Cells (Auto) (0-13.0) /HPF Urine Mucus /HPF Urine HCG, Qual (Negative) Urine Opiates Screen Urine Methadone Screen Ur Barbiturates Screen Ur Phencyclidine Scrn Ur Amphetamines Screen U Benzodiazepines Scrn Urine Cocaine Screen U Marijuana (THC) Screen Drugs of Abuse Note 12/14/18 Range/Units 08:12 WBC (4.5-11.0) K/mm3 RBC (3.65-5.03) M/mm3 Hgb (10.1-14.3) gm/dl Hct (30.3-42.9) % MCV (79-97) fl MCH (28-32) pg MCHC (30-34) % RDW (13.2-15.2) % Plt Count (140-440) K/mm3 Lymph % (Auto) (13.4-35.0) % [place] % (Auto) (0.0-7.3) % Eos % (Auto) (0.0-4.3) % Baso % (Auto) (0.0-1.8) % Lymph # (1.2-5.4) K/mm3 [place] # (0.0-0.8) K/mm3 Eos # (0.0-0.4) K/mm3 Baso # (0.0-0.1) K/mm3 Seg Neutrophils % (40.0-70.0) % Seg Neutrophils # (1.8-7.7) K/mm3 D-Dimer (0-234) ng/mlDDU Sodium (137-145) mmol/L Potassium (3.6-5.0) mmol/L Chloride (98-107) mmol/L Carbon Dioxide (22-30) mmol/L Anion Gap mmol/L BUN (7-17) mg/dL Creatinine (0.7-1.2) mg/dL Estimated GFR ml/min BUN/Creatinine Ratio % Glucose (65-100) mg/dL Calcium (8.4-10.2) mg/dL Phosphorus (2.5-4.5) mg/dL Magnesium (1.7-2.3) mg/dL TSH (0.270-4.200) mlU/mL HCG, Qual Negative (Negative) Urine Color (Yellow) Urine Turbidity (Clear) Urine pH (5.0-7.0) Ur Specific [place] (1.003-1.030) Urine Protein (Negative) mg/dL Urine Glucose (UA) (Negative) mg/dL Urine Ketones (Negative) mg/dL Urine Blood (Negative) Urine Nitrite (Negative) Urine Bilirubin (Negative) Urine Urobilinogen (<2.0) mg/dL Ur Leukocyte Esterase (Negative) Urine WBC (Auto) (0.0-6.0) /HPF Urine RBC (Auto) (0.0-6.0) /HPF U Epithel Cells (Auto) (0-13.0) /HPF Urine Mucus /HPF Urine HCG, Qual (Negative) Urine Opiates Screen Urine Methadone Screen Ur Barbiturates Screen Ur Phencyclidine Scrn Ur Amphetamines Screen U Benzodiazepines Scrn Urine Cocaine Screen U Marijuana (THC) Screen Drugs of Abuse Note - EKG Data EKG shows normal: sinus rhythm, axis, intervals, QRS complexes, ST-T waves Rate: normal - Radiology Data Radiology results: report reviewed CHEST 2 VIEWS INDICATION / CLINICAL INFORMATION: palpitations. COMPARISON: None available. FINDINGS: SUPPORT DEVICES: None. HEART / MEDIASTINUM: No significant abnormality. LUNGS / PLEURA: No significant pulmonary or pleural abnormality. No pne umothorax. ADDITIONAL FINDINGS: No significant additional findings. IMPRESSION: 1. No acute findings. Signer Name: Mendoza Self MD Signed: 12/14/2018 7:52 AM Workstation Name: [id number] Transcribed By: REF Dictated By: DAVID FORREST MD Electronically Authenticated By: DAVID FORREST MD Signed Date/Time: 12/14/18 0752 - Medical Decision Making Patient is a 28-year-old female who presents to emergency room with complaints of tachycardia that began a couple days ago. She states she has a [employer] ke which has been showing an elevated heart rate in the 120s. she states she is laying in bed when her heart rate is in the 120s. She states the only other time she had an elevated heart rate was when she was . She states she has occasional, mild shortness of breath. She denies any exertional shortness of breath, chest pain, pleuritic chest pain, nausea, vomiting, diarrhea, urinary symptoms, lower extremity edema. 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 She denies any family history of cardiac issues or DVT/PE. she is a nonsmoker, nondrinker, no drug use. She states she takes Adderall and last took it two days ago. She denies any allergies to medications. she does endorse frequent caffeine use. no significant findings on physical examination. VSS. EKG WNL. CXR WNL. labs WNL. TSH is normal, electrolytes are normal. UA is normal. UDS shows amphetamines as positive most likely due to adderall use. d-dimer is negative. PERC criteria negative. spoke with DR. anderson regarding pt who agreed with discharge home and recommended outpatient follow up with cardiology. advsied pt to please drink plenty of water. please discuss with your primary care doctor either lowering your dose of Adderall or stopping your Adderall completely. Please discontinue all stimulant use including coffee, tea, sodas, energy drinks. Return to the emergency room for any new or worsening symptoms. 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 - Differential Diagnosis thyroid issue, electrolyte disturbance, arrhythmia, MVP, caffeine/adderall Critical care attestation.: If time is entered above; I have spent that time in minutes in the direct care of this critically ill patient, excluding procedure time. ED Disposition Clinical Impression: Palpitations Disposition: DC-01 TO HOME OR SELFCARE Is pt being admited?: No Does the pt Need Aspirin: No Condition: Stable Instructions: Palpitations (ED) Additional Instructions: Please drink plenty of water. please discuss with your primary care doctor either lowering your dose of Adderall or stopping your Adderall completely. Please discontinue all stimulant use including coffee, tea, sodas, energy drinks. Return to the emergency room for any new or worsening symptoms. 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 Referrals: EDYTA COOPER MD [Primary Care Provider] - 3-5 Days SHANNAN MITCHELL MD [Staff Physician] - 3-5 Days Time of Disposition: 09:34 Print Language: PERUVIAN
[2018-12-14 08:40] LABS: Amphetamine Screen,Urine PRESUMPTIVE POSITIVE
[2018-12-14 08:46] LABS: Basophils % (Auto) 0.5 % (0.0-1.8); Eosinophils # (Auto) 0.1 K/mm3 (0.0-0.4); Eosinophils % (Auto) 3.6 % (0.0-4.3); Hematocrit 36.1 % (30.3-42.9); Hemoglobin 12.7 gm/dl (10.1-14.3); Lymphocytes # (Auto) 1.5 K/mm3 (1.2-5.4); Lymphocytes % (Auto) 46.9 % (13.4-35.0); Mean Corpuscular HGB Conc 35 % (30-34); Mean Corpuscular Volume 94 fl (79-97); Monocytes # (Auto) 0.3 K/mm3 (0.0-0.8); Platelet Count 212 K/mm3 (140-440); Red Blood Count 3.85 M/mm3 (3.65-5.03); Red Cell Distribution Width 13.3 % (13.2-15.2)
[2018-12-14 08:52] LABS: BUN/Creatinine Ratio 9; Blood Urea Nitrogen 7 mg/dL (7-17); Calcium 8.5 mg/dL (8.4-10.2); Hemolysis Index 6
--- NOTE | 2018-12-14 08:56 | XRay Report ---
CHEST 2 VIEWS INDICATION / CLINICAL INFORMATION: palpitations. COMPARISON: None available. FINDINGS: SUPPORT DEVICES: None. HEART / MEDIASTINUM: No significant abnormality. LUNGS / PLEURA: No significant pulmonary or pleural abnormality. No pneumothorax. ADDITIONAL FINDINGS: No significant additional findings. IMPRESSION: 1. No acute findings. Signer Name: Mendoza Self MD Signed: 12/14/2018 7:52 AM Workstation Name: [id number]
[2018-12-14 09:46] VITALS: BP 140/92
== END 2018-12-14 10:05 | disposition home or self-care (01) ==
LOC: ED 06:53
DX: R00.2 Palpitations (principal); Z79.1 Long term (current) use of non-steroidal anti-inflammatories (NSAID); Z79.899 Other long term (current) drug therapy
CPT/HCPCS: 36415; 71046; 80048; 80307; 81001; 81025; 83735; 84100; 84443; 84703; 85025; 85379; 93005; 93010; 99283

== ENCOUNTER 2022-01-13 10:53 | Emergency (ER) | payer SELFPAY ==
[2022-01-13] MEDS ORDERED: FLUORESCEIN 1 MG STRIP OP ONE (11:11)
[2022-01-13] MEDS ORDERED: TETRACAINE 0.5% OPHTH SOLN 4ML OU ONE (11:11)
[2022-01-13] MEDS ORDERED: TOBRADEX 0.3-0.1% OPHTH SUSP 2.5ML OU ONE (12:00)
[2022-01-13] MEDS ORDERED: oxyCODONE /ACETAMINOPHEN 5-325MG TAB PO ONE (13:34)
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
[2022-01-13 14:29] VITALS: BP 156/91
[2022-01-13] MEDS ORDERED: ERYTHROMYCIN 5 MG/1 GM OPHTH OINT OU NR (14:30)
== END 2022-01-13 16:36 | disposition home or self-care (01) ==
LOC: ED 10:53
DX: H18.823 Corneal disorder due to contact lens, bilateral (principal); Z98.890 Other specified postprocedural states; Z79.899 Other long term (current) drug therapy
CPT/HCPCS: 99282; 99283